=== PATIENT | female | born 2000 | race Caucasian/White ===

== ENCOUNTER 2025-02-17 00:10 | Outpatient (CLI) | payer SELFPAY ==
[2025-02-17 00:26] VITALS: RESP 16; TEMP 36.8
[2025-02-17 00:27] VITALS: PULSE 100; O2SAT 98
[2025-02-17 00:28] VITALS: BP 109/69; PULSE 97
[2025-02-17 00:34] VITALS: BMI 37.2
--- NOTE | 2025-02-17 01:45 | OB.TRI.HP_ITS ---
HPI - General General Date of Admission: 02/17/25 Date of Service: 02/17/25 Chief Complaint: blood with wiping contractions HPI Narrative JESUSITA MINOR, is a 24 F who presents from [facility] after an evaluation for contractions and bleeding Had one episode of bleeding at 1200 yesterday. Went to [facility] where a UA, US and kidney US were completed. UA was contaminated. US normal. No previa. Kidney on right with mild hydro no evidence of stones. Cervix checked 3 times and closed. CL on US 3.6 and closed. Previous Delivery in 11/29 at 41 weeks. Vaginal. Came here tonight for second opinion do to pain. Maternal Data Information Final MARITO: 02/25/25 Gestational age: 30+1 PFSH PFSH Allergy/AdvReac Type Severity Reaction Status Date / Time No Known Allergies Allergy Verified 02/17/25 00:35 History 2 Elective abortions Hx Para 1 Spontaneous abortions Hx # Term Pregnancies Ectopic pregnancies Hx # Pregnancies Multiple births # of living children ROS Constitutional Constitutional: Denies fatigue, fever(s) or malaise ENT HEENT: Denies dizziness or headache(s) Gastrointestinal Gastrointestinal: Reports constipation and cramping; Denies diarrhea Genitourinary Genitourinary: Reports flank pain and urinary frequency Integumentary Integumentary: Denies rash Neurologic Neurologic: Denies confusion, dizziness, headache(s), numbness or weakness Physical Exam Const alert and no apparent distress General Appearance: cooperative HEENT normocephalic Resp normal respiratory effort GI soft to palpation GI Narrative: gravid, nontender, appropriate for gestational age Manual OB Exam: dilated closed, effaced thick and station high Uterus Palpation: Negative for uterus tender Extremity no calf tenderness General Extremity: edema Skin no wounds Rashes: No rashes noted Psych activity/motor behavior normal NST FHR Rate Baby A Baseline: 145 Variability:: Moderate Accelerations:: 15 x 15 Decelerations:: None NST Reactive:: Yes Uterine Activity:: irritable Assessment & Plan (1) Cramping complicating , antepartum: (2) 30 weeks gestation of : PLAN: Plan Likely small stone or one that recently passed. Precautions given.
[2025-02-17 07:12] VITALS: BP 128/74; PULSE 98
== END 2025-02-17 01:53 | disposition home or self-care (01) ==
LOC: WPOUT 00:19 → WP 00:19
PROVIDERS: Referring Provider Obstetrics & Gynecology; Visit Provider Obstetrics & Gynecology
DX: O99.891 Other specified diseases and conditions complicating pregnancy (principal); R10.9 Unspecified abdominal pain; Z3A.30 30 weeks gestation of pregnancy
CPT/HCPCS: 59025; 59050; 99221; G0378